=== PATIENT | female | born 1980 | race American Indian/Alaskan Native ===

== ENCOUNTER 2016-10-15 22:39 | Emergency (ER) | payer SELFPAY ==
[~2016-10-15 22:39] MED LIST: NORCO 5-325 TA1 EACH PO
--- NOTE | 2016-10-17 00:03 | ER ---
ADMIT: 10/15/2016 RM/LOC: ER [facility] MR#: [id number] [place], [place] [id number] NEY FLANAGAN [address] [facility] [place] [address] Emergency Room Report SEX: F AGE: 36 : 1980 DATE: 10/15/2016 HISTORY OF PRESENT ILLNESS: A 36-year-old female, who apparently was arrested by the police after domestic disturbance call, who apparently has been using methamphetamine recently. She became combative and angry. The [employer] car was brought her to the ER for clearance for her to go to custodial. The patient was combative angry, agitated, and would not answer questions except for cursing. Physical exam revealed a young angry belligerent female, note for sinus tachycardia on the monitor in the 120s and elevated blood pressure secondary to her anger resistance. The patient was medically cleared. She is given Haldol and 0.5 mg of Ativan and discharged to custodial. Leonel Marlow MD/ sandi JOB #: [id number] CC: Michael Yee MD, Attending Physician Bruce Lopez MD, Family Physician
== END 2016-10-15 23:00 | disposition home or self-care (01) ==
LOC: ER 22:39
DX: Z02.89 Encounter for other administrative examinations (principal); E03.9 Hypothyroidism, unspecified

== ENCOUNTER 2016-10-18 19:57 | Emergency (ER) | payer SELFPAY | END 2016-10-18 20:02 | disposition home or self-care (01) | LOC: ER 19:57 | DX: Z53.21 Procedure and treatment not carried out due to patient leaving prior to being seen by health care provider (principal) ==